=== PATIENT | male | born 1945 | race Caucasian/White ===

== ENCOUNTER 2019-09-01 06:59 | Day surgery (SDC) | payer BC, MEDICARE, OTHER ==
[2019-08-28 15:19] VITALS: BMI 28.6
[~2019-09-01 06:59] MED LIST: LACTATED RINGERS 1,000 ML IV SCH; LIDOCAINE 1% (10MG/ML) FOR IV START INTRADERMA PRN
[2019-09-01 07:18] VITALS: RESP 16; TEMP 97.5
[2019-09-01 07:25] LABS: Glucose,Whole Blood 123 mg/dL (75-99)
[2019-09-01] MEDS ORDERED: PROPOFOL 10 MG/ML 20 ML VIAL IV ONE (07:45)
[2019-09-01] MEDS ORDERED: IV FLUID CONTINUATION 200 ML IV ONE (08:21)
--- NOTE | 2019-09-01 08:21 | P.PCN ---
Date of Procedure: 09/01/19 Description of Procedure: BRIEF HISTORY: Patient is a 73-year-old male with a 5 year history of Crohn's colitis with perianal involvement and fistula formation presenting for evaluation with colonoscopy. Patient previously treated with antibiotic therapy as well as treatment with a 5ASA agent. Initial diagnosis in 2016 currently the patient is reporting alternating constipation with episodes of diarrhea. Patient reports active fistula with straining. Was treated with antibiotic therapy and sent for MRI of the pelvis which is pending. PROCEDURE PERFORMED: Colonoscopy with biopsy. PREOPERATIVE DIAGNOSIS: Erosive disease, last colonoscopy 2-3 years ago.. ESTIMATED BLOOD LOSS: Minimal. IV sedation per Anesthesia. PROCEDURE: After informed consent was obtained, the patient, was brought into the endoscopy unit. IV sedation was administered by Anesthesia under continuous monitoring. Digital rectal examination was normal. Initially the Olympus CF-190 flexible video colonoscope was then inserted in the rectum, gradually advanced into the cecum without any difficulty. Careful examination was performed as the scope was gradually being withdrawn. Ileocecal valve and the appendiceal orifice were visualized and appeared normal. The terminal ileum was intubated and appeared small with biopsies taken. Prep was excellent. Mucosa of the cecum, ascending colon, transverse colon, descending colon, sigmoid colon, and rectum appeared normal, except for mild erythema and loss of vascularity noted throughout the colon and more prevalent in the right colon suggestive of mild to moderate Crohn's colitis, with random biopsies taken of the right colon, transverse co heather, left colon and rectum. Multiple small mouth diverticula noted in the sigmoid colon. Retroflexion was performed in the rectum and no lesions were seen. The patient tolerated the procedure well. IMPRESSION: Mild to moderate Crohn's colitis more prominent in the right colon with biopsies taken of the right colon, left colon, transverse colon and terminal ileum which appeared normal. Mild sigmoid diverticulosis. RECOMMENDATIONS: Findings of this examination were discussed with the patient His family. Okay to resume diet. Okay to resume medications. Await pathology from biopsies. MRI of the pelvis is pending. Patient should follow-up in the GI clinic as previously scheduled.
[2019-09-01 08:32] LABS: Glucose,Whole Blood 127 mg/dL (75-99)
[2019-09-01 08:45] VITALS: BP 146/82; PULSE 67
== END 2019-09-01 08:59 | disposition home or self-care (01) ==
LOC: ORWHC2ENDO 06:59
PROVIDERS: ATTEND Internal Medicine
DX: K50.10 Crohn's disease of large intestine without complications (principal); K57.30 Diverticulosis of large intestine without perforation or abscess without bleeding; Z88.0 Allergy status to penicillin; Z79.82 Long term (current) use of aspirin; Z79.4 Long term (current) use of insulin; Z79.899 Other long term (current) drug therapy; Z98.890 Other specified postprocedural states; I25.10 Atherosclerotic heart disease of native coronary artery without angina pectoris; I10 Essential (primary) hypertension; E78.5 Hyperlipidemia, unspecified; G47.33 Obstructive sleep apnea (adult) (pediatric); E11.9 Type 2 diabetes mellitus without complications
CPT/HCPCS: 88305; 45380; J2704

== ENCOUNTER → 2019-09-11 | Outpatient (CLI) | payer MEDICARE ==
--- NOTE | 2019-09-11 16:13 | MR ---
EXAMINATION TYPE: MR pelvis wo/w con DATE OF EXAM: 09/11/2019 COMPARISON: None. HISTORY: PeriAnal fistula CONTRAST: Standard multiplanar, multisequence MRI departmental protocol utilizing 8.5 mL intravenous Gadavist g adolinium contrast. The exam was performed of the pelvis focusing on the rectum. FINDINGS: Prostate gland is mildly enlarged in size and bulging of bladder base consistent with under lying BPH. Bladder wall thickness is concentrically mildly thickened with trabeculation likely reflec ting outlet obstruction related to BPH. Extending from the anterior superior bladder margin there is then tubular structure going all the way to the umbilicus suspicious for tiny patent urachus without suspicious enhancement. There is no suspicious dilatation of visualized bowel loops in the lower abdomen and pelvis. There is partial visualization of somewhat redundant sigmoid colon. There is fecal material in the rectum wit hout suspicious wall thickening. The perirectal and perianal fat is preserved bilaterally. There is n o suspicious eccentric linear T2 hyperintense signal or linear enhancement to suggest fistula tract f rom the rectum or anus. No concerning pelvic fluid collection or suspicious pelvic adenopathy. Visualized osseous structures are intact. No suspicious groin hernia or adenopathy. IMPRESSION: Perirectal/perianal fistula is not identified.
== END | disposition home or self-care (01) ==
LOC: RADMRIMAIN 12:24
PROVIDERS: ATTEND Internal Medicine
DX: K60.3 Anal fistula (principal)
CPT/HCPCS: 72197; A9585

== ENCOUNTER → 2021-08-19 | Outpatient (CLI) | payer MEDICARE ==
[2021-08-19 18:28] LABS: HCT 39.4 % (39.6-50.0); HGB 11.9 g/dL (13.0-17.0); MCHC 30.2 g/dL (32.0-37.0); MCV 96.1 fL (80.0-97.0); NRBC Per 100 WBC 0 /100 WBCS (0.0-0.0); Platelet Count 217 X 10*3/uL (140-440); RDW 12.9 % (11.5-14.5); WBC 7.06 X 10*3/uL (4.50-10.00)
[2021-08-19 18:48] LABS: African American GFR (CKD) 67.7 (60.0-200.0); Anion Gap 7.9 mmol/L (10.00-18.00); Blood Urea Nitrogen 20.8 mg/dL (9.0-27.0); Carbon Dioxide 27.1 mmol/L (20.0-27.5); Non-African American GFR(CKD) 58.4 (60.0-200.0); Potassium 4.8 mmol/L (3.5-5.5)
== END | disposition home or self-care (01) ==
LOC: LABPAT 10:15
PROVIDERS: ATTEND Internal Medicine Interventional Cardiology
DX: Z01.812 Encounter for preprocedural laboratory examination (principal); R94.39 Abnormal result of other cardiovascular function study
CPT/HCPCS: 80051; 82565; 84520; 85027

== ENCOUNTER 2021-10-19 09:51 | Day surgery (SDC) | payer MEDICARE ==
[2021-10-17 16:18] VITALS: BMI 30.5
[~2021-10-19 09:51] MED LIST changes: +ALPRAZolam 0.25 MG TAB PO PRN; +ALPRAZolam 0.5 MG TAB PO PRN; +ASPIRIN 325 MG TAB PO ONE; -LACTATED RINGERS 1,000 ML IV SCH; -LIDOCAINE 1% (10MG/ML) FOR IV START INTRADERMA PRN; +NITROGLYCERIN SL TABS 0.4 MG TAB SUBLINGUAL PRN
[2021-10-19] MEDS: SODIUM CHLORIDE 0.9% 1,000 ML in EMPTY BAG 1 BAG IV SCH ×2 (10:21→17:24)
[2021-10-19 10:24] LABS: Glucose,Whole Blood 187 mg/dL (70-110)
[2021-10-19 10:24] LABS: Basophils # (A) 0.1 k/uL (0-0.2); Basophils % (A) 1 %; Eosinophils # (A) 0.4 k/uL (0-0.7); Eosinophils % (A) 5 %; HCT 44.2 % (39.0-53.0); HGB 14.3 gm/dL (13.0-17.5); Lymphocytes # (A) 1.2 k/uL (1.0-4.8); Lymphocytes % (A) 15 %; MCH 29.7 pg (25.0-35.0); MCHC 32.4 g/dL (31.0-37.0); MCV 91.8 fL (80.0-100.0); Mean Platelet Volume 7.6; Monocytes # (A) 0.5 k/uL (0-1.0); Monocytes % (A) 7 %; Neutrophils # (A) 5.4 k/uL (1.3-7.7); Neutrophils % (A) 70 %; Platelet Count 287 k/uL (150-450); RBC 4.82 m/uL (4.30-5.90); RDW 12.7 % (11.5-15.5); WBC 7.7 k/uL (3.8-10.6)
[2021-10-19 10:38] LABS: Calcium 9.2 mg/dL (8.4-10.2); Potassium 4.6 mmol/L (3.5-5.1)
[2021-10-19] MEDS ORDERED: VERAPAMIL 2.5 MG/ML 2 ML AMP ONE (11:43)
[2021-10-19] MEDS ORDERED: fentaNYL (PF) 50 MCG/ML 2 ML AMP ONE (12:01)
[2021-10-19] MEDS ORDERED: HEPARIN SODIUM 1,000 UN/ML (10ML VL) ONE (12:01)
[2021-10-19] MEDS ORDERED: fentaNYL (PF) 50 MCG/ML 2 ML AMP IV ONE (12:23)
[2021-10-19] MEDS ORDERED: LIDOCAINE 1% INJ 10MG/ML (5 ML VIAL-PF) SQ ONE (12:28)
[2021-10-19] MEDS ORDERED: VERAPAMIL SYRINGE (5 MG/10 ML) INTRAARTER ONE (12:29)
[2021-10-19] MEDS ORDERED: HEPARIN SODIUM 1,000 UN/ML (10ML VL) IV ONE (12:44)
[2021-10-19] MEDS ORDERED: CLOPIDOGREL 75 MG TAB ONE ×2 (12:48→12:49)
[2021-10-19] MEDS ORDERED: CLOPIDOGREL 75 MG TAB PO ONE (12:51)
[2021-10-19] MEDS ORDERED: IOPAMIDOL-370 125ML BTL INJ ONE (12:59)
[2021-10-19] MEDS ORDERED: IOPAMIDOL-370 100ML BTL INJ ONE (14:08)
[2021-10-19] MEDS ORDERED: ATROPINE SULFATE 0.1 MG/ML 10ML SYRINGE IV PRN (14:09)
[2021-10-19] MEDS ORDERED: MAG HYDROX/AL HYDROX/SIMETH 30 ML CUP PO PRN (14:09)
[2021-10-19] MEDS ORDERED: RX INFO: IV CONTRAST WAS GIVEN 1 EACH MISC MISCELLANE PRN (14:09)
[2021-10-19] MEDS ORDERED: NITROGLYCERIN SL TABS 0.4 MG TAB SUBLINGUAL PRN (14:09)
[2021-10-19] MEDS ORDERED: ZOLPIDEM 5 MG TAB PO PRN (14:09)
[2021-10-19] MEDS ORDERED: SODIUM CHLORIDE 0.9% 1,000 ML in EMPTY BAG 1 BAG IV SCH (14:15)
[2021-10-19] MEDS ORDERED: USTEKINUMAB 45 MG/0.5 ML SQ SCH (14:15)
--- NOTE | 2021-10-19 14:20 | P.CARDCATH ---
Date of Procedure: 10/19/21 Description of Procedure: Cardiac Catheterization: The patient is a 76-year-old male with a known history of CAD, post CABG presented with symptoms of exertional chest discomfort and had an abnormal MPI. Recommendations were made regarding cardiac catheterization, the risks and the complications were discussed with the patient who is in full understanding and agreement. Procedure Description: Patient was brought to labor relations consultant in fasting semi-sedated state after receiving Fentanyl and Benadryl achieiving moderate conscious sedated state. Using Xylocaine Anesthesia and Seldinger technique, a 6-Malaysian sheath was introduced in the left radial artery . Subsequently, selective coronary angiography was performed using a 5-Malaysian 4 bend Shakila catheter. Multiple views of the coronary artery including hemiaxial views were obtained. The right Shakila was used to cannulate the SCHULZ to the LAD and images of the graft were obtained. The right Shakila catheter was used to cross the aortic valve and LVEDP was calculated. Following that angioplasty was performed, a 6-Malaysian 4 bend left Shakila catheter was introduced into system, a 0.014 BMW J-wire was introduced in the ramus intermedius in the lower segment and positioned distally, another 0.014 BMW J-wire was advanced across the superior segment and positioned distally. Attempts to advance a 2.5-12 mm NC Treck were unsuccessful because of the tortuosity. A 6-Malaysian guide liner was advanced and the balloon would not cross the lesion. Because of the poor backup the guiding catheter was exchanged and a 6-Malaysian CLS 3.5 guiding catheter was introduced. The lower segment of the ramus intermedius was recannulated using a 0.014 BMW J-wire, subsequently multiple attempts to advance a wire across the lesion in the superior segment using the BMW J, a 0.014 whisper J, and a 0.014 run through wire were unsuccessful in spite of using a super cross straight catheter because of the severe tortuosity. At that time the decision was made to stop. Following that, catheter and sheath were removed. Hemostasis was obtained with deployment of TR band . There was no immediate complication. Patient was returned to room in stable condition. Of note, the patient received a total of 2000 units of intravenous heparin as well as intra-arterial verapamil. He also received an oral loading dose of clopidogrel. He had no chest discomfort or EKG changes. Findings: Fluoroscopy: Calcification of the LAD was noted. Left main: This is a large size vessel, trifurcating into LAD, left circumflex and ramus intermedius, the left main has no high-grade stenosis LAD: In this vessel is occluded proximally at the takeoff of the first septal fire equipment inspector and diagonal branch, there is no significant antegrade flow Left circumflex: This is a nondominant vessel giving rise to a small obtuse marginal branch that is subtotally occluded and diffusely diseased Ramus intermedius this is a large branching vessel, calcified. The superior branch has a 90-95% stenosis proximally, the vessel is tortuous RCA: This is a dominant vessel, large in caliber, bifurcating distally to PDA and PLV, the mid RCA has diffuse intimal disease of about 50-60% with no progression compared with the old images SCHULZ: The distal anastomotic site is patent to flow into the LAD is brisk. Left Ventriculogram: Not performed Hemodynamics: There was no gradient across the aortic valve, LVEDP was 12-16 mmHg Conclusion: 1. Calcified coronary arteries 2. Chronically occluded LAD 3. Severe disease ramus intermedius 4. Moderate disease in the RCA was subtotally occluded second obtuse marginal branch 6. Unsuccessful angioplasty of the ramus intermedius Recommendations: I have reviewed the findings with the patient and his family at this time on maximize medical therapy and if he has recurrent symptoms repeat attempt of angioplasty will be performed. The findings and the recommendations were discussed with the patient and the family and they were in full understanding and agreement. Duration of sedation is 95 minutes.
[2021-10-19 17:13] LABS: Glucose,Whole Blood 247 mg/dL (70-110)
[2021-10-19] MEDS: METOPROLOL TARTRATE 25 MG TAB PO SCH (19:39)
[2021-10-19 20:19] LABS: Glucose,Whole Blood 288 mg/dL (70-110)
[2021-10-19] MEDS ORDERED: INSULIN DETEMIR (LEVEMIR) 100 UNIT/ML SYR SQ SCH (21:00)
[2021-10-19] MEDS ORDERED: EZETIMIBE 10 MG TAB PO SCH (21:00)
[2021-10-19] MEDS ORDERED: ATORVASTATIN 20 MG TAB PO SCH (21:00)
[2021-10-20] MEDS: SODIUM CHLORIDE 0.9% 1,000 ML in EMPTY BAG 1 BAG IV SCH (05:37)
[2021-10-20 07:37] LABS: Glucose,Whole Blood 172 mg/dL (70-110)
[2021-10-20 07:37] LABS: African American GFR (CKD) 56 (>60 ml/min/1.73 sqM); Anion Gap 4 mmol/L; Blood Urea Nitrogen 21 mg/dL (9-20); Calcium 8.8 mg/dL (8.4-10.2); Carbon Dioxide 30 mmol/L (22-30); Chloride 106 mmol/L (98-107); Glucose 158 mg/dL (74-99); Non-African American GFR(CKD) 49 (>60 ml/min/1.73 sqM); Potassium 4.6 mmol/L (3.5-5.1); Sodium 140 mmol/L (137-145)
[2021-10-20] MEDS: METOPROLOL TARTRATE 25 MG TAB PO SCH (07:51)
[2021-10-20 08:01] VITALS: BP 149/78; PULSE 71; RESP 17; TEMP 98.1
--- NOTE | 2021-10-20 08:40 | P.PN ---
Subjective Progress Note Date: 10/20/21 PROGRESS NOTE The patient is a 76-year-old male with a known history of CAD, status post CABG who had an abnormal myocardial perfusion imaging and has been complaining of chest discomfort. Underwent cardiac catheterization yesterday was found to have a patent SCHULZ to the LAD, chronically occluded LAD in the proximal segment, moderate disease in the RCA and significant disease in the left circumflex and ramus intermedius. Attempted angioplasty of the ramus intermedius was unsuccessful in advancing the wire because of severe tortuosity. The patient is doing well this morning, he denies any chest discomfort or dizziness. He denies any nausea or vomiting. Medications: Aspirin, metoprolol 25 mg twice a day, losartan 50 mg daily, isosorbide mononitrate 60 mg daily, insulin, simvastatin 40 mg daily, Amaryl, Actos, Ezetimide PHYSICAL EXAMINATION: Blood pressure 149/70 heart rate 70 LUNGS: Clear to auscultation HEART: Regular rate and rhythm, S1, S2. No S3. systolic ejection murmur ABDOMEN: Soft, nontender, no organomegaly EXTREMETIES: No edema, left radial pulse intact LAB: Potassium 4.6, BUN 21, creatinine 1.39 IMPRESSION: 1. Severe triple-vessel disease 2. Severe stenosis in the ramus intermedius with unsuccessful angioplasty 3. Hypertension 4. Hyperlipidemia PLAN: 1. Increase isosorbide mononitrate to twice a day 2. Continue other medications 3. At the patient continues to have symptoms consistent the repeat attempted angioplasty 4. Follow up in one week, the recommendations were discussed with the patient. Objective - Vital Signs Vital signs: Vital Signs Temp 98.1 F 10/20/21 07:00 Pulse 71 10/20/21 07:00 Resp 17 10/20/21 07:00 BP 149/78 10/20/21 07:00 Pulse Ox 94 L 10/20/21 07:00 FiO2 Intake & Output 10/19/21 10/20/21 10/20/21 18:59 06:59 18:59 Intake Total 500 Balance 500 Weight 87.6 kg Intake: IV 500 Other: # Voids 1 1 - Labs CBC & Chem 7: 10/19/21 10:15 10/20/21 06:45 Labs: Abnormal Lab Results - Last 24 Hours (Table) 10/19/21 10/19/21 10/19/21 Range/Units 10:13 10:15 17:12 BUN 26 H (9-20) mg/dL Creatinine 1.37 H (0.66-1.25) mg/dL Glucose 183 H (74-99) mg/dL POC Glucose (mg/dL) 187 H 247 H (70-110) mg/dL 10/19/21 10/20/21 10/20/21 Range/Units 20:18 06:45 07:35 BUN 21 H (9-20) mg/dL Creatinine 1.39 H (0.66-1.25) mg/dL Glucose 158 H (74-99) mg/dL POC Glucose (mg/dL) 288 H 172 H (70-110) mg/dL
[2021-10-20] MEDS ORDERED: LOSARTAN 50 MG TAB PO SCH (09:00)
[2021-10-20] MEDS ORDERED: ASPIRIN 81 MG PO SCH (09:00)
[2021-10-20] MEDS ORDERED: CLOPIDOGREL 75 MG TAB PO SCH (09:00)
[2021-10-20] MEDS ORDERED: GLIMEPIRIDE 2 MG TAB PO SCH (09:00)
[2021-10-20] MEDS ORDERED: PIOGLITAZONE 15 MG TAB PO SCH (09:00)
[2021-10-20] MEDS ORDERED: ISOSORBIDE MONONITRATE ER 60 MG TAB.ER.24H PO SCH ×3 (09:00→21:00)
== END 2021-10-20 10:13 | disposition home or self-care (01) ==
LOC: CATHCVL 09:51 → 6NMEDSUR 14:00 → CATHCVL 10-20 10:13
PROVIDERS: ATTEND Internal Medicine Interventional Cardiology
DX: I25.10 Atherosclerotic heart disease of native coronary artery without angina pectoris (principal); I25.82 Chronic total occlusion of coronary artery; I10 Essential (primary) hypertension; E11.51 Type 2 diabetes mellitus with diabetic peripheral angiopathy without gangrene; I65.21 Occlusion and stenosis of right carotid artery; E78.2 Mixed hyperlipidemia; Z95.1 Presence of aortocoronary bypass graft; Z20.822 Contact with and (suspected) exposure to COVID-19; Z87.891 Personal history of nicotine dependence; Z79.82 Long term (current) use of aspirin; Z79.899 Other long term (current) drug therapy; Z79.84 Long term (current) use of oral hypoglycemic drugs; Z79.4 Long term (current) use of insulin; Z88.0 Allergy status to penicillin; Z82.49 Family history of ischemic heart disease and other diseases of the circulatory system
CPT/HCPCS: 93458; 92920; 80048 ×2; 85025; 87635; C1769 ×8; C1887 ×4; C1894; C1725; J2001; J3010; J1644; Q9967 ×2

== ENCOUNTER 2022-08-01 10:30 | Day surgery (SDC) | payer MEDICARE ==
[2022-08-01] MEDS: LACTATED RINGERS 1,000 ML IV ONE ×2 (11:50→11:58)
[2022-08-01 11:51] LABS: Glucose,Whole Blood 151 mg/dL (70-110)
[2022-08-01 11:54] VITALS: RESP 16; TEMP 97.6
[2022-08-01] MEDS ORDERED: PROPOFOL 10 MG/ML 20 ML VIAL IV ONE (12:30)
[2022-08-01] MEDS ORDERED: LACTATED RINGERS 1,000 ML IV ONE (12:33)
--- NOTE | 2022-08-01 13:00 | P.PCN ---
Date of Procedure: 08/01/22 Procedure(s) Performed: BRIEF HISTORY: Patient is a 76-year-old pleasant white male scheduled for an elective colonoscopy as a part of surveillance of long-standing history of Crohn's colitis diagnosed in 2015. He presently maintained on Stelara injections every 8 weeks and is in clinical remission PROCEDURE PERFORMED: Colonoscopy with random biopsy. PREOPERATIVE DIAGNOSIS: History of Crohn's colitis diagnosed in 2069. IV sedation per Anesthesia. PROCEDURE: After informed consent was obtained, the patient, was brought into the endoscopy unit. IV sedation was administered by Anesthesia under continuous monitoring. Digital rectal examination was normal. Initially the Olympus CF-160 flexible video colonoscope was then inserted in the rectum, gradually advanced into the cecum without any difficulty. Careful examination was performed as the scope was gradually being withdrawn. Ileocecal valve and the appendiceal orifice were visualized and appeared normal. Prep was fair.. Mucosa of the cecum, ascending colon, transverse colon, descending colon, appeared normal. There was evidence of ulceration in the sigmoid colon. Rest of the sigmoid colon, and rectum appeared normal. Biopsies were done from the cecum to rectum at every 10 cm into well to rule out dysplasia. Retroflexion was performed in the rectum and no lesions were seen. The patient tolerated the procedure well. IMPRESSION: Normal-appearing colon from rectum to cecum with no evidence of active colitis or colorectal neoplasia Scattered pseudopolyps in the sigmoid colon. RECOMMENDATIONS: Findings of this examination were discussed with the patient as well as his family. He was advised to continue with current medications and follow with the biopsy results. If the biopsy does not have any evidence of dysplasia, he can have a repeat colonoscopy in 2 years.
[2022-08-01 13:18] VITALS: BP 147/90; PULSE 74
[2022-08-01 13:19] LABS: Glucose,Whole Blood 139 mg/dL (70-110)
== END 2022-08-01 13:38 | disposition home or self-care (01) ==
LOC: ORWHC2ENDO 10:30
PROVIDERS: ATTEND Internal Medicine Gastroenterology
DX: K50.10 Crohn's disease of large intestine without complications (principal); I25.10 Atherosclerotic heart disease of native coronary artery without angina pectoris; I10 Essential (primary) hypertension; E78.5 Hyperlipidemia, unspecified; G47.33 Obstructive sleep apnea (adult) (pediatric); E11.9 Type 2 diabetes mellitus without complications; K21.9 Gastro-esophageal reflux disease without esophagitis; Z88.0 Allergy status to penicillin; Z87.891 Personal history of nicotine dependence; Z95.1 Presence of aortocoronary bypass graft; Z79.899 Other long term (current) drug therapy
CPT/HCPCS: 88305; 45380; J2704